=== PATIENT | male | born 1985 | race Caucasian/White ===

== ENCOUNTER 2021-06-06 19:37 | Emergency (ER) | payer OTHER ==
[~2021-06-06] VITALS: Ht 180.3 cm; Wt 90.9 kg
[2021-06-06 19:50] VITALS: BP 131/86
[2021-06-06 20:34] LABS: ALBUMIN 3.6 G/DL (3.4-5.0); BLOOD UREA NITROGEN 15 MG/DL (7-18); BUN/CREATININE RATIO 18.3 (5.4-32.0); CALCIUM 8.2 MG/DL (8.5-10.1); CHLORIDE 106 MMOL/L (99-107); CREATININE 0.82 MG/DL (0.60-1.10); TOTAL CARBON DIOXIDE 24.1 MMOL/L (24-32); eGFR > 90 ML/MIN
[2021-06-06 21:00] LABS: BASOPHILS # (AUTO) 0.1 X10'3 (0-0.2); MONOCYTES # (AUTO) 0.5 X10'3 (0-0.9); NEUTROPHILS # (AUTO) 5.2 X10'3 (1.8-7.7)
[2021-06-06 21:03] LABS: ANION GAP 12 (8-16); GLUCOSE 122 MG/DL (70-104); POTASSIUM 3.6 MMOL/L (3.5-5.1); SODIUM 142 MMOL/L (135-145)
[2021-06-06 21:19] LABS: BASOPHILS % (AUTO) 1.1 % (0-1); EOSINOPHILS # (AUTO) 0.9 X10'3 (0-0.9); EOSINOPHILS % (AUTO) 9.5 % (0-6); HEMATOCRIT 45.8 % (42.0-52.0); HEMOGLOBIN 16.3 g/dl (14.0-17.9); LYMPHOCYTES # (AUTO) 2.9 X10'3 (1.1-4.8); LYMPHOCYTES % (AUTO) 29.8 % (21-51); MEAN CORPUSCULAR HEMOGLOBIN 31.6 PG (27.0-31.0); MEAN CORPUSCULAR HGB CONC 35.6 g/dL (33.0-36.5); MEAN CORPUSCULAR VOLUME 88.8 FL (78-98); MONOCYTES % (AUTO) 5.5 % (2-12); NEUTROPHILS % (AUTO) 54.1 % (42-75); PLATELET COUNT 299 X10'3 (140-440); RED BLOOD COUNT 5.16 X10'6 (4.70-6.10); RED CELL DISTRIBUTION WIDTH 13.1 % (11.5-14.5); WHITE BLOOD COUNT 9.7 X10'3 (4.5-11.0)
[2021-06-06 21:43] LABS: PLATELET ESTIMATE NORMAL
[2021-06-06 21:44] LABS: SPHEROCYTES 2+
[2021-06-06] MEDS ORDERED: BUDE180A INH (21:46)
[2021-06-06] MEDS ORDERED: ALBU8.5H17 INH (21:46)
[2021-06-06] MEDS ORDERED: GUAI400T92 PO (21:49)
== END 2021-06-06 22:10 | disposition home or self-care (01) ==
LOC: ER 19:37
DX: J45.909 Unspecified asthma, uncomplicated (principal); Z20.822 Contact with and (suspected) exposure to COVID-19; J20.9 Acute bronchitis, unspecified; R06.02 Shortness of breath; R05.9 Cough, unspecified; R51.9 Headache, unspecified; Z79.899 Other long term (current) drug therapy
CPT/HCPCS: 36415; 71045; 80048; 85008; 85025; 87635; 99284; C9803